=== PATIENT | male | born 1945 | race Caucasian/White ===

== ENCOUNTER 2017-09-22 11:33 | Inpatient (IN) | payer MEDICARE, OTHER ==
[~2017-09-22] VITALS: Ht 180.3 cm; Wt 95.3 kg
[2017-09-22] VITALS (73 sets, daily range): BP systolic 80–115; BP diastolic 45–75
[2017-09-22] MEDS: SODIUM CHLORIDE 0.9% 1000ML 1,000 ML IV SCH ×4 (11:35→20:51)
[2017-09-22] MEDS ORDERED: SODIUM CHLORIDE 0.9% 1000ML 2,000 ML ONE ×2 (11:49→15:07)
[2017-09-22] MEDS ORDERED: SUCCINYLCHOLINE CHLORIDE 20 MG/ML 10ML VIAL IV STA (12:01)
[2017-09-22] MEDS ORDERED: ETOMIDATE 2 MG/ML 10 ML INJ IV STA (12:01)
[2017-09-22 12:13] LABS: BASOPHILS # (AUTO) 0.1 (0.0-0.1); BASOPHILS % 0.5 % (0.0-1.0); EOSINOPHILS # (AUTO) 0.1 (0.0-0.4); EOSINOPHILS % 0.9 % (0.0-6.0); HEMATOCRIT 48.6 % (38.2-49.6); HEMOGLOBIN 16.8 g/dL (14.0-18.0); LYMPHOCYTES # (AUTO) 1.3 (1.0-3.2); MEAN CORPUSCULAR HEMOGLOBIN 30.1 pg (28-32); MEAN CORPUSCULAR HGB CONC 34.6 g/dL (31-35); MEAN CORPUSCULAR VOLUME 86.9 fL (81-99); MONOCYTES # (AUTO) 0.7 (0.2-0.8); MONOCYTES % 6.8 % (4.4-11.3); NEUTROPHILS # (AUTO) 8.7 (2.1-6.9); NEUTROPHILS % 79.3 % (38.7-80.0); PLATELET COUNT 356 x10e3/uL (140-360); RED BLOOD COUNT 5.59 x10e6/uL (4.3-5.7); RED CELL DISTRIBUTION WIDTH 12.5 % (11.7-14.4)
[2017-09-22 12:17] LABS: INR 1.8; PROTHROMBIN TIME 19.6 seconds (11.9-14.5)
[2017-09-22 12:18] LABS: PARTIAL THROMBOPLASTIN TIME 42.4 seconds (23.8-35.5)
[2017-09-22 12:27] LABS: ALBUMIN 3.8 g/dL (3.5-5.0); ALBUMIN/GLOBULIN RATIO 1.1 (0.8-2.0); CALCIUM 10.1 mg/dL (8.4-10.2); CREATININE, SERUM 2.11 mg/dL (0.72-1.25)
[2017-09-22 12:35] LABS: CREATINE KINASE MB 1.8 ng/mL (0-5.0)
[2017-09-22] MEDS ORDERED: GLUCAGON FOR INJ 1 MG VIAL IV ONE (13:00)
[2017-09-22] MEDS ORDERED: VECURONIUM BROMIDE FOR INJ 20 MG VIAL IV ONE (13:01)
--- NOTE | 2017-09-22 13:36 | Diagnostic Imaging Report ---
Examination: Single AP view of the chest. COMPARISON: None INDICATION: Overdose DISCUSSION: Lines/tubes: Right subclavian line with distal tip in the mid right atrium. Consider 5 cm retraction. Endotracheal tube 5 cm from the inferior florentino in position. Lungs: Right lower lobe opacity. Pleura: There is no pleural effusion or pneumothorax. Heart and mediastinum: The heart and the mediastinum are unremarkable. Bones and soft tissues: No acute bony abnormalities. IMPRESSION: Right lower lobe opacity may reflect pneumonia or aspiration. Right subclavian catheter in the mid right atrium. Consider retraction. Signed by: Dr. Say Woods M.D. on 09/22/2017 1:32 PM
--- NOTE | 2017-09-22 13:37 | Diagnostic Imaging Report ---
Exam: Abdominal film Clinical History: Abdominal pain Comparison: None. DISCUSSION: Frontal view of the abdomen shows a nonobstructive bowel gas pattern with mild amount of retained stool. There are no dilated, air-filled loops of bowel. There are no abnormal calcifications. No acute bone abnormality. IMPRESSION: 1. Nonobstructive bowel gas pattern. Signed by: Dr. Say Woods M.D. on 09/22/2017 1:33 PM
[2017-09-22] MEDS ORDERED: PIPER-TAZ 3.375 GM 50 ML IV STA (13:40)
[2017-09-22] MEDS ORDERED: VECURONIUM BROMIDE FOR INJ 20 MG VIAL ONE (13:45)
[2017-09-22] MEDS ORDERED: SUCCINYLCHOLINE CHLORIDE 20 MG/ML 10ML VIAL ONE (13:45)
[2017-09-22] MEDS ORDERED: WATER STERILE 10 ML VIAL ONE (13:45)
[2017-09-22] MEDS ORDERED: ETOMIDATE 2 MG/ML 10 ML INJ IV ONE (13:45)
[2017-09-22] MEDS ORDERED: MIDAZOLAM HCL 2 MG/2 ML VIAL ONE (13:45)
[2017-09-22 14:02] LABS: CLARITY,URINE CLEAR (CLEAR); COLOR,URINE YELLOW (YELLOW); LEUKOCYTE ESTERASE ,URINE NEGATIVE (NEGATIVE)
[2017-09-22 14:03] LABS: BILIRUBIN,URINE 1+ (NEGATIVE); KETONES,URINE NEGATIVE (NEGATIVE); NITRITE,URINE NEGATIVE (NEGATIVE); PROTEIN,URINE DIPSTICK 1+ (NEGATIVE); URINE UROBILINOGEN 0.2 mg/dL (0.2 - 1)
[2017-09-22 14:11] LABS: AMPHETAMINES SCREEN,URINE NEGATIVE (NEGATIVE); PHENCYCLIDINE SCREEN,URINE NEGATIVE (NEGATIVE)
[2017-09-22 14:12] LABS: BENZODIAZEPINES SCREEN,URINE POSITIVE (NEGATIVE)
[2017-09-22] MEDS ORDERED: DEXTROSE 50% SYRINGE 50 ML IV STA (14:12)
[2017-09-22] MEDS ORDERED: INSULIN REGULAR, HUMAN 100 UNIT/1 ML 3ML VIAL IV ONE (14:15)
[2017-09-22 14:18] LABS: BACTERIA,URINE FEW /HPF; EPITHELIAL CELLS,URINE FEW /LPF; MUCUS,URINE MANY (RARE); RBC,URINE 0-5 /HPF (0-5); TRANSITIONAL EPI CELLS,URINE RARE
[2017-09-22] MEDS ORDERED: DEXTROSE 50% SYRINGE 50 ML IV ONE ×2 (14:18→18:50)
[2017-09-22] MEDS ORDERED: INSULIN REGULAR, HUMAN 100 UNIT/1 ML 3ML VIAL ONE (14:19)
[2017-09-22 14:25] LABS: SALICYLATE < 5.0 mg/dL (0-30)
--- NOTE | 2017-09-22 14:54 | Diagnostic Imaging Report ---
History:Overdose AMS Comparison studies:None Technique: Axial images were obtained from the skull base to the vertex. Coronal and sagittal images reconstructed from the axial data. Intravenous contrast: None Findings: Scalp/skull: No abnormalities. Extra-axial spaces: No masses. No fluid collections. Brain sulci: Age appropriate. Ventricles: Age appropriate. No hydrocephalus. Parenchyma: No abnormal densities. No masses, hemorrhage, acute or chronic cortical vascular insults. Sellar/suprasellar region: No abnormalities. Craniocervical junction: Patent foramen magnum. No Chiari one malformation. Incidental findings: Atherosclerotic calcifications in the carotid siphons . Secretions in the left maxillary sinus and nasopharynx. Impression: No acute abnormalities. Signed by: DR Moi Nicholson M.D. on 09/22/2017 2:50 PM
[2017-09-22 14:55] LABS: ABG HCO3 19 mmol/L (23-28); ABG PCO2 54 mmHg (41-51); ABG PH 7.17 (7.31-7.41); ABG PO2 197 mmHg (80-105)
[2017-09-22 14:56] LABS: ABG HCO3 17 mmol/L (23-28); ABG PCO2 42 mmHg (41-51); ABG PH 7.21 (7.31-7.41); ABG PO2 86 mmHg (80-105)
[2017-09-22] MEDS ORDERED: HUM PROTHROMBIN CPLX(PCC)4FACT 2,000 UNIT IV ONE (15:09)
[2017-09-22] MEDS ORDERED: ACETYLCYSTEINE 200 MG/1 ML 10ML VIAL INH STA (15:09)
[2017-09-22] MEDS ORDERED: NOREPINEPHRINE 8 MG/D5W 250 ML 250 ML ONE (15:28)
[2017-09-22] MEDS ORDERED: ACETYLCYSTEINE 20% INHAL SOLN 30 ML VIAL GT SCH ×2 (15:30→19:30)
[2017-09-22] MEDS ORDERED: ACETYLCYSTEINE 200 MG/ML 4ML VIAL ONE (15:30)
[2017-09-22] MEDS ORDERED: ACETYLCYSTEINE 200 MG/ML 4ML VIAL INH ONE (15:45)
[2017-09-22] MEDS ORDERED: NOREPINEPHRINE INJ 4MG/4ML 8 MG in DEXTROSE 5% 250ML 250 ML IV STA (15:45)
[2017-09-22] MEDS ORDERED: ACETYLCYSTEINE 20% INHAL SOLN 30 ML VIAL GT ONE (16:00)
[2017-09-22] MEDS ORDERED: INSULIN REGULAR IV SCH ×2 (16:00)
[2017-09-22] MEDS ORDERED: HUMAN IV SCH ×2 (16:00)
[2017-09-22] MEDS ORDERED: [UNRECOGNIZED DRUG - OTHER] IV SCH ×2 (16:00)
[2017-09-22] MEDS ORDERED: SODIUM CHLORIDE 0.9% IV SCH ×2 (16:00)
--- OUTSIDE RECORDS SUMMARY | 2017-09-22 16:32 | XMS REPORT ---
Author Author [facility] Address Unknown Phone Unavailable Care Team Providers Care Stove Fitter Name Role Phone JACKI OSBORNE Unavailable Unavailable Problems This patient has no known problems. Allergies, Adverse Reactions, Alerts This patient has no known allergies or adverse reactions. Medications This patient has no known medications. Results Test Description Test Time Test Comments Text Results Atomic Results Result Comments ABDOMEN-1VIEW (KUB) [place] [address] Patient Name: SADIA TRUONG MR #: [id number] : 1945 Age/Sex: 72/M Req #: [id number] Adm Physician: Ordered by: JACKI OSBORNE MD Report # : [id number] Location: ER Room/Bed: Procedure: [id number] DX/ABDOMEN-1VIEW (KUB) Exam Date: 09/22/17 Exam Time: 1305 REPORT STATUS: Signed Exam: Abdominal film Clinical History: Abdominal pain Comparison: None. DISCUSSION: Frontal view of the abdomen shows a nonobstructive bowel gas pattern with mild amount of retained stool. There are no dilated, air-filled loops of bowel. There are no abnormal calcifications. No acute bone abnormality. IMPRESSION: 1. Nonobstructive bowel gas pattern. Signed by: Dr. Claire Cosby M.D. on 09/22/2017 1:33 PM Dictated By: CLAIRE COSBY MD 32 Transcribed By: SUZANNE on 09/22/171332 COPY TO: JACKI OSBORNE MD CHEST SINGLE (PORTABLE) [place] [address] Patient Name: SADIA TRUONG MR #: [id number] : 1945 Age/Sex: 72/M Req #: [id number] Adm Physician: Ordered by: JACKI OSBORNE MD Report #: [id number] Location: ER Room/Bed: Procedure: [id number] DX/CHEST SINGLE (PORTABLE) Exam Date: 09/22/17 Exam Time: 1305 REPORT STATUS: Signed Examination: Single AP view of the chest. COMPARISON: None INDICATION: Overdose DISCUSSION: Lines/tubes: Right subclavian line with distal tip in the mid right atrium. Consider 5 cm retraction. Endotracheal tube 5 cm from the inferior florentino in position. Lungs: Right lower lobe opacity. Pleura: There is no pleural effusion or pneumothorax. Heart and mediastinum: The heart and the mediastinum are unremarkable. Bones and soft tissues: No acute bony abnormalities. IMPRESSION: Right lower lobe opacity may reflect pneumonia or aspiration. Right subclavian catheter in the mid right atrium. Consider retraction. Signed by: Dr. Claire Cosby M.D. on 09/22/2017 1:32 PM Dictated By: CLAIRE COSBY MD 31 Transcribed By: SUZANNE on 09/22/171331 COPY TO: JACKI OSBORNE MD CT BRAIN WO [place] [address] Patient Name: SADIA TRUONG MR #: [id number] : 1945 Age/Sex: 72/M Req #: [id number] Adm Physician: Ordered by: JACKI OSBORNE MD Report #: [id number] Location: Room/Bed: Procedure: [id number] CT/CT BRAIN WO Exam Date: 09/22/17 Exam Time: 1431 REPORT STATUS: Signed History:Overdose AMS Comparison studies:None Technique: Axial images were obtained from the skull base to the vertex. Coronal and sagittal images reconstructed from the axial data. Intravenous contrast: None Findings: Scalp/skull: No abnormalities. Extra- axial spaces: No masses. No fluid collections. Brain sulci: Age appropriate. Ventricles: Age appropriate. No hydrocephalus. Parenchyma: No abnormal densities. No masses, hemorrhage, acute or chronic cortical vascular insults. Sellar/suprasellar region: No abnormalities. Craniocervical junction: Patent foramen magnum. No Chiari one malformation. Incidental findings: Atherosclerotic calcifications in the carotid siphons . Secretions in the left maxillary sinus and nasopharynx. Impression: No acute abnormalities. Signed by: DR Moi Nicholson M.D. on 09/22/2017 2:50 PM Dictated By: MOI PAYTON MD [id number] Transcribed By: SUZANNE on 1456 COPY TO: JACKI OSBORNE MD
--- NOTE | 2017-09-22 16:50 | Diagnostic Imaging Report ---
Examination: Single AP view of the chest. COMPARISON: None. INDICATION: Catheter placement DISCUSSION: Lines/tubes: Dialysis catheter tip overlying the superior vena cava. Endotracheal tube in satisfactory position 5 cm from the florentino. An enteric tube with distal tip not visualized. Lungs: Pulmonary venous congestion. No consolidation. Pleura: There is no pleural effusion or pneumothorax. Heart and mediastinum: The heart and the mediastinum are unremarkable. Bones and soft tissues: No acute bony abnormalities. IMPRESSION: 1. Pulmonary venous congestion Signed by: Dr. Say Woods M.D. on 09/22/2017 4:46 PM
[2017-09-22] MEDS ORDERED: ACETYLCYSTEINE 200 MG/1 ML 10ML VIAL GT SCH (17:00)
[2017-09-22] MEDS ORDERED: NOREPINEPHRINE INJ 4MG/4ML 8 MG in DEXTROSE 5% 250ML 250 ML IV SCH (17:30)
[2017-09-22] MEDS ORDERED: INSULIN REGULAR, HUMAN 3ML VL 100 UNIT in SODIUM CHLORIDE 0.9% 100 ML 100 ML IV SCH ×2 (17:45)
[2017-09-22] MEDS ORDERED: PHENYLEPHRINE 10MG/ML VIAL 40 MG in DEXTROSE 5% 250ML 250 ML IV PRN (17:45)
[2017-09-22] MEDS ORDERED: MIDAZOLAM HCL 2 MG/2 ML VIAL IV PRN (17:45)
--- NOTE | 2017-09-22 17:55 | Diagnostic Imaging Report ---
Examination: Single AP view of the chest. COMPARISON: 09/22/2017 INDICATION: Catheter placement DISCUSSION: Lines/tubes: Dialysis catheter tip overlying the superior vena cava. Endotracheal tube in satisfactory position 5 cm from the florentino. An enteric tube with distal tip not visualized. Lungs: Pulmonary venous congestion. No consolidation. Pleura: There is no pleural effusion or pneumothorax. Heart and mediastinum: The heart and the mediastinum are unremarkable. Bones and soft tissues: No acute bony abnormalities. IMPRESSION: 1. Pulmonary venous congestion Signed by: Dr. Say Woods M.D. on 09/22/2017 5:51 PM
[2017-09-22] MEDS ORDERED: ACETYLCYSTEINE 200 MG/1 ML 10ML VIAL PO SCH (18:00)
[2017-09-22] MEDS ORDERED: HYDROCORTISONE SOD SUCCINATE 250 MG VIAL IV SCH (18:00)
[2017-09-22 18:35] LABS: ACETAMINOPHEN > 376623 ug/mL (10-30)
[2017-09-22 18:37] LABS: CREATINE KINASE MB 2.1 ng/mL (0-5.0)
[2017-09-22] MEDS ORDERED: PHYTONADIONE 10 MG/ML AMP SQ ONE (20:00)
--- NOTE | 2017-09-22 20:22 | Consultation ---
DATE OF CONSULTATION: September 22, 2017 PULMONARY CONSULTATION This is a patient of Dr. Rojo. Admitted through the emergency room after an apparent suicide attempt. Currently intubated and on pressors. History of depression on multiple medications. He took whole bottles apparently of Lexapro, metoprolol, irbesartan, lovastatin, TriCor, Norvasc, Pradaxa, Tylenol, Xanax, Ambien and Cymbalta. PHYSICAL EXAMINATION GENERAL: He is currently comatose. VITALS: Temperature is 98.1, pulse 58, respirations 18, blood pressure 78/45. HEENT: Head is normocephalic and atraumatic. Appears somewhat elderly. LUNGS: A few rhonchi anteriorly. HEART: Regular rhythm. ABDOMEN: Nontender. EXTREMITIES: Not edematous. IMPRESSION: Intentional suicide attempt by overdose. PLAN: Support, pressors, dialysis. if available. Pro time is 19.6, INR 1.8. CT of the brain revealed no evidence of acute stroke. He is quite acidotic. Bicarb is 20. Creatinine 2.1. Glucose 369. Monitor carefully. Dialysis at the discretion of the nephrology service loss control consultant. EKG suggests a sinus bradycardia. Thank you for this kind referral. Job#: [id number]
[2017-09-22 20:23] LABS: INR 2.42; PROTHROMBIN TIME 24.7 seconds (11.9-14.5)
[2017-09-22 20:24] LABS: PARTIAL THROMBOPLASTIN TIME 63.2 seconds (23.8-35.5)
[2017-09-22] MEDS: PIPERACILLIN/TAZO 2.25 GM 50 ML IV SCH (20:35)
[2017-09-22] MEDS: HYDROCORTISONE SOD SUCCINATE 100 MG VIAL IV SCH (20:38)
[2017-09-22 20:42] LABS: ANION GAP 15.4 mmol/L (8-16); CALCIUM 7.9 mg/dL (8.4-10.2); POTASSIUM 3.4 mmol/L (3.5-5.1)
[2017-09-22] MEDS: ACETYLCYSTEINE 20% INHAL SOLN 30 ML VIAL GT SCH (20:50)
[2017-09-22 20:51] LABS: CREATININE, SERUM 2.5 mg/dL (0.72-1.25)
[2017-09-22] MEDS ORDERED: PHYTONADIONE 10MG/ML 1 ML ONE (21:42)
[2017-09-22] MEDS ORDERED: MAGNESIUM SULF 1GRAM/DEXTROSE 100 ML IV PRN (22:00)
[2017-09-22] MEDS ORDERED: POTASSIUM CHLORIDE 20MEQ/100ML 200 ML IV PRN (22:00)
[2017-09-22] MEDS ORDERED: SODIUM BICARBONATE 8.4% IV SCH (22:15)
[2017-09-22] MEDS ORDERED: DEXTROSE 5% IV SCH (22:15)
[2017-09-22] MEDS: POTASSIUM CHLORIDE 20MEQ/100ML 100 ML IV PRN (23:00)
[2017-09-23] VITALS (112 sets, daily range): BP systolic 0–139; BP diastolic 0–115
[2017-09-23] MEDS ORDERED: HUM PROTHROMBIN CPLX(PCC)4FACT 2,000 UNIT IV SCH
[2017-09-23] MEDS: ACETYLCYSTEINE 20% INHAL SOLN 30 ML VIAL GT SCH ×4 (00:29→14:01)
[2017-09-23] MEDS: HYDROCORTISONE SOD SUCCINATE 100 MG VIAL IV SCH ×3 (00:29→14:01)
[2017-09-23] MEDS: PIPERACILLIN/TAZO 2.25 GM 50 ML IV SCH ×3 (00:29→14:01)
[2017-09-23 00:35] LABS: INR 2.24; PROTHROMBIN TIME 23.3 seconds (11.9-14.5)
[2017-09-23] MEDS: SODIUM BICARBONATE 8.4% 150 ML in DEXTROSE 5% 1,000 ML IV SCH ×3 (00:38→14:01)
[2017-09-23 00:46] LABS: ANION GAP 20.1 mmol/L (8-16); CREATININE, SERUM 2.76 mg/dL (0.72-1.25); MAGNESIUM 1.6 MG/DL (1.3-2.1); POTASSIUM 3.1 mmol/L (3.5-5.1)
[2017-09-23 01:07] LABS: CREATINE KINASE MB 2.3 ng/mL (0-5.0)
[2017-09-23] MEDS: POTASSIUM CHLORIDE 20MEQ/100ML 100 ML IV PRN (01:08)
--- NOTE | 2017-09-23 01:25 | Consultation ---
DATE OF CONSULTATION: ADDENDUM PULMONARY CONSULTATION He has received glucagon in an attempt to counteract the effects of metoprolol and now insulin to counteract the effect of the Norvasc. He is to receive Mucomyst protocol for the Tylenol overdose. Discussed with family and nurses. Thank you for this kind referral. Job#: [id number] CF
--- NOTE | 2017-09-23 03:00 | Consultation ---
DATE OF CONSULTATION: September 22, 2017 GI CONSULT NOTE REFERRING PHYSICIAN: Donis Rojo MD REASON FOR CONSULT: Tylenol overdose. HISTORY OF PRESENTING ILLNESS: P[age]cf[id number]-old male with host of comorbidities, most notably severe depression. He overdosed himself with so many medications today. He consumed all the medications in different bottles that included Lexapro, metoprolol, irbesartan, lovastatin, Tricor, Norvasc, Pradaxa, Tylenol, Xanax, Ambien, and Cymbalta. I cannot derive any history from him. He is currently intubated, on respiratory support. REVIEW OF SYSTEMS: Unobtainable. PAST MEDICAL HISTORY: Depression, hypertension, hyperlipidemia, insomnia. PAST SURGICAL HISTORY: Not available in chart. FAMILY HISTORY: Noncontributory. SOCIAL HISTORY: No smoking, alcohol, or any illicit drug use. ALLERGIES: NO KNOWN DRUG ALLERGIES. HOME MEDICATIONS: Not available. INPATIENT MEDICATIONS: Reviewed. He is getting intravenous Zosyn and acetylcysteine, magnesium sulfate, hydrocortisone succinate IV 50 mg every 6 hours, potassium chloride. PHYSICAL EXAMINATION: VITAL SIGNS: Temperature 97.2; pulse 55; respiration 16 to 18, on respiratory support; blood pressure ranging from 86/49 to 105/56. GENERAL: Intubated, sedated, on ventilator. HEENT: Anicteric sclerae. Oral mucosa is moist. CVS: S1 and S2. Regular. LUNGS: Bilaterally grossly clear. ABDOMEN: Soft, nondistended, nontender. No palpable mass or hernia. Positive bowel sounds. EXTREMITIES: Warm. No leg edema. LABS: WBC 10.96, hemoglobin 16.8, hematocrit 48.6, MCV 86.9, platelet count 356,000. Sodium 133, potassium 3.4, chloride 105, bicarb 16, BUN 26, creatinine 2.50, glucose 521. Liver enzymes normal. Troponins negative. Urine toxicology showed acetaminophen level 071847 mcg/mL. Urinalysis showed WBC 6 to 10 per high-power field, bilirubin positive, leukocyte esterase negative, nitrite negative. Chest x-ray, pulmonary venous congestion. Abdominal x-ray showed nonobstructive bowel gas pattern. IMPRESSION: Polysubstance overdose, Tylenol level is exceedingly high, however, patient does not have any abnormal liver enzymes. INR is slowly rising. It has gone up to 2.42 from 1.80. Glucose level 521. PLAN: From GI standpoint, patient is not into any liver failure at this point of time. Continue Mucomyst and complete the dose. Monitor PT/INR every 4 hours, check glucose every 2 hours. If INR is rising and glucose level is going down, that will be indication of liver failure. Rest of the supportive care as per ICU team. I thank Dr. Rojo for allowing me to participate in the care of this patient. Job#: [id number]
[2017-09-23 03:25] LABS: BASOPHILS % 0.2 % (0.0-1.0); HEMATOCRIT 46.7 % (38.2-49.6); HEMOGLOBIN 15.5 g/dL (14.0-18.0); LYMPHOCYTES % 5.1 % (18.0-39.1); MEAN CORPUSCULAR HEMOGLOBIN 30.1 pg (28-32); MEAN CORPUSCULAR HGB CONC 33.2 g/dL (31-35); MEAN CORPUSCULAR VOLUME 90.7 fL (81-99); MONOCYTES # (AUTO) 0.9 (0.2-0.8); MONOCYTES % 4.5 % (4.4-11.3); NEUTROPHILS % 89.7 % (38.7-80.0); PLATELET COUNT 288 x10e3/uL (140-360); RED BLOOD COUNT 5.15 x10e6/uL (4.3-5.7); RED CELL DISTRIBUTION WIDTH 12.1 % (11.7-14.4)
[2017-09-23 03:33] LABS: INR 2.47; PROTHROMBIN TIME 25.1 seconds (11.9-14.5)
[2017-09-23 03:43] LABS: ANION GAP 20.5 mmol/L (8-16); CREATININE, SERUM 3.03 mg/dL (0.72-1.25); MAGNESIUM 1.5 MG/DL (1.3-2.1); POTASSIUM 3.5 mmol/L (3.5-5.1)
[2017-09-23] MEDS ORDERED: SODIUM CHLORIDE 0.9% 1000ML 1,000 ML ONE (06:45)
--- NOTE | 2017-09-23 07:02 | Diagnostic Imaging Report ---
Examination: Single AP view of the chest. COMPARISON: 09/22/2017 and at 1727 hours INDICATION: Pneumonia DISCUSSION: Lines/tubes: Endotracheal, NG tube and right subclavian central line catheter are stable. Lungs: Worsening lung volumes with bibasilar atelectasis and central vascular congestion.. Pleura: Small bilateral pleural effusions. Heart and mediastinum: The heart and the mediastinum are unremarkable. Bones and soft tissues: No acute bony abnormalities. Degenerative changes in the thoracic spine. IMPRESSION: 1. Persistent central vascular congestion with developing of mild interstitial edema. Tubes and lines are stable. Signed by: Dr. Benji Campbell M.D. on 09/23/2017 6:58 AM
[2017-09-23 08:32] LABS: INR 3.23
[2017-09-23 08:37] LABS: PARTIAL THROMBOPLASTIN TIME 101.4 seconds (23.8-35.5)
[2017-09-23 08:44] LABS: ANION GAP 18.1 mmol/L (8-16); CALCIUM 7.3 mg/dL (8.4-10.2); CREATININE, SERUM 3.17 mg/dL (0.72-1.25); POTASSIUM 4.1 mmol/L (3.5-5.1)
[2017-09-23] MEDS ORDERED: EPINEPHRINE HCL 1:1000 4 MG in DEXTROSE 5% 250ML 250 ML IV PRN (09:45)
[2017-09-23] MEDS ORDERED: HUM PROTHROMBIN CPLX IV SCH (15:09)
[2017-09-23] MEDS ORDERED: [UNRECOGNIZED DRUG - OTHER] IV SCH (15:09)
--- NOTE | 2017-09-23 17:53 | Consultation ---
DATE OF CONSULTATION: September 23, 2017 NEUROLOGY CONSULTATION HISTORY OF PRESENT ILLNESS: Mr. Alex is a 72-year-old man with a past medical history significant for hypertension, hyperlipidemia, atrial fibrillation on Pradaxa, and very recently diagnosed depression admitted to [facility] on September 22, 2017, following an intentional drug overdose. Mr. Alex was found in the late morning/early afternoon of September 22, 2017, by his after intentionally ingesting whole bottles of Lexapro, metoprolol, irbesartan, lovastatin, TriCor, Norvasc, Pradaxa, Tylenol, Xanax, Ambien, and Cymbalta. When Mrs. Alex found the patient, he was unresponsive. She alerted emergency medical services, and Mr. Alex was transported to the emergency center at [facility] for further evaluation and treatment. Mr. Alex was reportedly comatose upon arrival to the emergency center. He had been intubated by paramedics and was placed on a ventilator. Continuous infusions of 3 pressors were initiated to maintain the patient's blood pressure and heart rate. A CT of the brain without contrast was performed and did not show evidence of recent large territorial ischemia, hemorrhage, mass or mass effect. Mr. Alex was admitted to the intensive care unit for further evaluation and treatment. Overnight the patient did experience a cardiopulmonary arrest. Advanced cardiac life support protocol was initiated, and spontaneous circulation was returned. At that time, the emergency center physician recommended the patient undergo an electroencephalogram to evaluate for electrocortical activity. The neurology service was consulted to evaluate for anoxic ischemic brain injury and to interpret the electroencephalogram. At the time of evaluation, the patient is intubated and mechanically ventilated. He is on three pressors to support heart rate and blood pressure. Despite this support, heart rate and blood pressure are progressively trending downward. The patient is anuric. Per the ICU nurse, the patient has not produced any urine in the past several hours. REVIEW OF SYSTEMS: Unable to obtain as the patient is comatose. PAST MEDICAL HISTORY: Hypertension, hyperlipidemia, atrial fibrillation on Pradaxa, recently diagnosed with depression with suicidal ideations, bladder cancer diagnosed in 2014, currently in remission, and hepatitis. PAST SURGICAL HISTORY: Bladder tumor resection in 2015, bilateral carotid endarterectomies. PAST HOSPITALIZATIONS: For surgeries and procedures listed. FAMILY HISTORY: There is a strong family history of hypertension, coronary artery disease, and alcohol abuse. The patient had a maternal aunt who was treated for depression. The patient's brother is undergoing treatment for depression. SOCIAL HISTORY: Mr. Alex is . He has an associates degree. The patient is a retired client administrator. There is a remote history of tobacco use (in his 20s). There is a history of alcohol use. The patient's family members do not endorse a prior history of heavy alcohol use. Mr. Alex stopped drinking alcohol in 1988. There is no known current or prior history of recreational drug use. HOME MEDICATIONS: As per history of present illness. ALLERGIES: NO KNOWN DRUG ALLERGIES. NO KNOWN FOOD ALLERGIES. NO KNOWN ALLERGY TO LATEX. NO KNOWN ALLERGIES TO IODINE OR OTHER CONTRAST MATERIALS. PHYSICAL EXAMINATION VITAL SIGNS: Height 71 inches. Weight 210 pounds. BMI 29.3 kg per meter squared. Blood pressure 89/54 mmHg, pulse 54 beats per minute. Respiratory rate 16 breaths per minute. The patient is mechanically ventilated. GENERAL: Comatose. HEENT: Normocephalic, atraumatic. Pupils are equal, round, not reactive to light. Moist mucous membranes. NECK: Supple. No appreciable thyromegaly. No appreciable carotid bruits. CARDIOVASCULAR: S1, S2 bradycardic. No murmurs, rubs or gallops. RESPIRATORY: Intubated. Clear to auscultation bilaterally. No wheezes, rhonchi or rales. EXTREMITIES: The skin is warm and dry. No clubbing, cyanosis or edema. The posterior tibial and dorsalis pedis pulses are 1+ and symmetric. SKIN: No rashes or lesions. NEUROLOGIC MEMORY/ATTENTION: Comatose. No response to verbal or noxious stimulation. CRANIAL NERVES: Pupils are 6 mm and nonreactive. Weak bilateral corneal reflexes are present. Oculocephalic and gag reflexes are intact. The face appears symmetric. STRENGTH: No response to peripheral noxious stimulation (nail bed pressure). DTRs: Deep tendon reflexes are absent and symmetric at the triceps, biceps, brachioradialis, patellas, and Achilles. Plantar responses are mute bilaterally. Absent clonus. SENSATION: As per motor exam. CEREBELLAR: Unable to assess secondary to the patient being comatose. GAIT: Unable to assess secondary to the patient being comatose and intubated. SPEECH: Unable to assess secondary to the patient being comatose and intubated. INVOLUNTARY MOVEMENTS: None. PRONATOR DRIFT: As per motor exam. LABORATORY DATA: Sodium 128, potassium 4.1, chloride 101, carbon dioxide 13, anion gap 18.1, BUN 26, creatinine 3.17, estimated GFR 19. OYG-nh-rwtehxmfsf ratio 8. Glucose 626. Calcium 7.3. Magnesium 1.5. Creatine kinase 46 seconds. CK-MB 2.30. Troponin I 0.072. CBC with differential and platelets revealed a white blood cell count of 18.97 with 89.7% neutrophils, 5.1% lymphocytes, 4.5% monocytes, 0.0% eosinophils and 0.2% basophils. PT 31.0, INR 3.23, PTT 101.4. Arterial blood gas reveals pH 7.21, pCO2 of 42, pO2 of 86, bicarbonate of 17, oxygen saturation of 94.0, and a base excess of -11.0. Urinalysis shows 1+ protein and 1+ bilirubin. Otherwise, the urinalysis was unremarkable. Serum toxicology reveals salicylate level less than 5.0, acetaminophen level of greater than 376,623, ethyl alcohol level of less than 10.0 and positive for benzodiazepines. DIAGNOSTIC STUDIES 1. CT of the brain without contrast on 09/22/2017: No acute abnormalities. 2. Chest x-ray on 09/22/2017: Right lower lobe opacity may reflect pneumonia or aspiration. Right subclavian catheter in the mid right atrium. Consider retraction. 3. Abdomen x-ray on 09/22/2017: Nonobstructive bowel gas pattern. 4. Chest x-ray on 09/22/2017: Pulmonary venous congestion. 5. Chest x-ray 09/22/2017: Pulmonary venous congestion. 6. Chest x-ray 09/23/2017: Persistent central vascular congestion with developing mild interstitial edema. Tubes and lines are stable. ASSESSMENT AND PLAN: Mr. Alex is a 72-year-old man admitted to [facility] following an intentional drug overdose. His neurological examination is significant for weak bilateral corneal reflexes, intact oculocephalic and gag reflexes. The presence of these reflexes indicates the patient's brainstem is probably intact. However, the patient is comatose. There is no response to verbal or central or peripheral noxious stimulation. These findings indicate impairment of cortical function. During this evaluation, an electroencephalogram was performed to evaluate for electrocortical activity. Initially, the patient had a background rhythm of 2 to 3 Hz compatible with severe diffuse encephalopathy. There was superimposed fast activity (approximately 14 Hz), probably secondary to benzodiazepine effect. While the electroencephalogram was being performed, the patient experienced abrupt cessation of cardiopulmonary activity. Advanced cardiac life support protocol was initiated, and spontaneous circulation returned within a few minutes. However, following the cardiopulmonary arrest, the EEG demonstrated no electrocortical activity. 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 The findings of the patient's neurological examination as well as the EEG findings before and after cardiopulmonary arrest were discussed in detail with the patient's family. Mr. Alex's family was advised his prognosis is very poor. Even if the patient's other organs recover, it is highly unlikely the patient will regain consciousness. In other words, the patient will very likely remain in a persistent vegetative state. After relating the above information to the patient's family, the family asked to be left alone to make a decision regarding the future care of Mr. Alxe. There are no further recommendations from the neurology service at this time. Thank you for this consultation. I will continue to follow this patient while he remains in hospital. Time spent: 210 minutes. Job#: [id number] CHICHI ARIZMENDI
--- NOTE | 2017-09-24 09:58 | Consultation ---
DATE OF CONSULTATION: NEPHROLOGY CONSULTATION REASON FOR CONSULTATION: Acute kidney injury, lactic acidosis, polydrug overdose. HPI: This is a 72-year-old male, morbidly obese, with recent diagnosis of depression, treated currently with antidepressive medications by the PCP. Also is on Pradaxa, which he comes in via EMS to the ER, intubated, and which he overdosed on Pradaxa and antidepressive medications. Patient apparently took overdose on his metoprolol, Norvasc, Cymbalta, Ambien, Xanax, as well as Tylenol. Patient is currently intubated, sedated on 3 pressors which are currently maxed out. Patient is currently unstable for any dialysis. Nephrology is consulted for HD management. REVIEW OF SYSTEMS: Patient drug overdosed on several medications, history of depression, unable to obtain rest of the 14-point review of systems as the patient is intubated and sedated. ALLERGIES: NO KNOWN DRUG ALLERGIES. HOME MEDICATIONS: Currently, the dosings are not available, but he does take Pradaxa, Lovastatin, TriCor, irbesartan, metoprolol, Lexapro, Pradaxa, Tylenol, Xanax, Ambien, and Cymbalta. PAST MEDICAL HISTORY: AFib, hypertension, depression, on anticoagulation--unsure if it is for AFib or DVT. SURGICAL HISTORY: Unknown. FAMILY HISTORY: Unknown. SOCIAL HISTORY: He is , has children. Recently, he has been having some depression. PHYSICAL EXAMINATION VITALS: Temperature is afebrile, his current blood pressure is 105/51. He is on 3 pressors, maxed out, on mechanical ventilator. GENERAL: Currently intubated and sedated. HEENT: Pupils equal, round, and reactive to light. Currently intubated and sedated. PULMONARY: Intubated and sedated on a vent. No crackles, no rales, no rhonchi. CARDIOVASCULAR: Positive S1 and S2. No murmurs, rubs, or gallops appreciated. ABDOMEN: Soft, nondistended, and nontender to palpation. Bowel sounds are present. MUSCULOSKELETAL: Unable to assess, patient is currently intubated and sedated. NEUROLOGICAL: Unable to assess, currently intubated and sedated. SKIN: Intact. Warm to touch. Good capillary refill. PSYCHIATRIC: Currently intubated and sedated. LAB FINDINGS: White count 10.9, hemoglobin 16.8, hematocrit 49, platelets of 356,000. Coagulations: PT 24.7, INR of 2.4, PTT 63. Chemistry: Sodium 133, potassium 3.4, chloride 105, bicarbonate is 16, anion gap of 15, BUN is 26, creatinine 2.5, glucose 521, calcium 7.9. LFTs, total bilirubin 0.8, AST 22, ALT 18, alkaline phosphatase 54. CK 66. Troponin is 0.024. His total protein 7.3, albumin 3.8. Urinalysis: WBC 6 to 10, RBC 0 to 5, specific gravity 1.030. Toxicology: Benzodiazepines positive. Acetaminophen level 376, 623. Alcohol level negative. Salicylate level negative. IMAGING STUDIES: CT brain: No acute findings. Chest x-ray: Right lower lobe opacity, may reflect pneumonia or aspiration. Chest x-ray shows pulmonary congestion. Abdominal x-ray: Nonobstructive bowel gas pattern. IMPRESSIONS 1. Drug overdose with Pradaxa and Tylenol. 2. Tylenol overdose. 3. Acute kidney injury, likely due to underlying acute tubular necrosis. 4. Hypotension. 5. Lactic acidosis. 6. Metabolic acidosis. 7. Hyperglycemia. PLAN: At this time, I already spoke to the family at bedside including the with nurse present. Due to the fact that the patient is on 3 pressors maxed out, currently on dopamine, Levophed, and Garrett-Synephrine, he is very unstable for any renal replacement therapy at this time. We will put him on bicarbonate drip D5 with 3 amps of bicarbonate to counteract lactic acidosis. He is currently on insulin drip as well which we will continue. We will repeat labs in the morning as well. Due to the fact that he is severely unstable at this time, it will be very difficult for me to do any kind of renal replacement therapy. In the event that he is on less pressors and blood pressure is much more higher and the patient is more stable, then TOBACCO ROLLER will be entertained. I discussed this with the family at bedside and they verbalized understanding. Also discussed this with the nursing staff and they verbalized understanding as well. His prognosis is significantly poor due to the fact that he has significant acetaminophen level and high doses of IV pressors. I also discussed with the nurse in the event that his blood pressure is much more stable and off of pressors, we will definitely do a renal replacement therapy to assist in this patient's care. Patient's family verbalized understanding and agrees with plan of care. Thank you so much for this consultation. Job#: [id number]
--- NOTE | 2017-11-02 23:12 | Discharge Summary ---
SUMMARY Patient on September 23, 2017. CONSULTANTS: Dr. Mariella Rivera, Dr. Cecil Schilling, Dr. Temo Gomes FINAL DIAGNOSES: 1. Expiration. 2. Suicide with multidrug overdose. 3. Major depression. SUMMARY: Patient was a 72-year-old male, who was brought in unresponsive to the emergency room. Apparently, the patient was found taking extensive multiple bottles of prescription medication. Patient was unresponsive and was brought in the emergency room and subsequently intubated. Due to airway compromise, the patient was hypoxic. His blood pressures dropped. He was on multiple pressors support. Blood sugar was in the 500 to 600 due to severe liver failure. Poison control was called. Patient has extensive amount of toxic drugs, Tylenol level. He was in renal failure as well. He did not tolerate dialysis. Patient was in poor condition. His PTT and INR were elevated. Vascular congestion with heart failure. Patient condition was worsened. Discussed with the patient and family at length. He remained in grave condition and subsequently on comfort care. The patient was on ventilator support, max pressor support when he basically coded, but the patient was placed on DNR, and subsequently . Please review the consultation note as well as ICU note. Job#: [id number]
== END 2017-09-23 15:09 | disposition expired | DRG 917 ==
LOC: ER 11:33 → ERHOLD 16:29 → ICU 16:31
PROVIDERS: ADMIT Internal Medicine; ATTEND Internal Medicine
PROC: 0BH17EZ Insertion of Endotracheal Airway into Trachea, Via Natural or Artificial Opening (ICD-10-PCS; principal; 2017-09-22)
PROC: 5A1945Z Respiratory Ventilation, 24-96 Consecutive Hours (ICD-10-PCS; 2017-09-22)
PROC: 02HV33Z Insertion of Infusion Device into Superior Vena Cava, Percutaneous Approach (ICD-10-PCS; 2017-09-22)
PROC: 02HV33Z Insertion of Infusion Device into Superior Vena Cava, Percutaneous Approach (ICD-10-PCS; 2017-09-22)
DX: T45.512A Poisoning by anticoagulants, intentional self-harm, initial encounter (principal); G92 Toxic encephalopathy; J96.01 Acute respiratory failure with hypoxia; N17.9 Acute kidney failure, unspecified; E87.2 Acidosis; G93.1 Anoxic brain damage, not elsewhere classified; E87.1 Hypo-osmolality and hyponatremia; R57.8 Other shock; I46.9 Cardiac arrest, cause unspecified; R73.9 Hyperglycemia, unspecified; I48.91 Unspecified atrial fibrillation; Z79.01 Long term (current) use of anticoagulants; F32.9 Major depressive disorder, single episode, unspecified; T39.1X2A Poisoning by 4-Aminophenol derivatives, intentional self-harm, initial encounter; N14.1 Nephropathy induced by other drugs, medicaments and biological substances; I10 Essential (primary) hypertension
CPT/HCPCS: 31500; 31720; 36415; 36600; 51700; 70450; 71045; 74018; 80048; 80053; 80307; 80320; 80329; 81001; 82550; 82553; 82805; 83735; 83880; 84484; 85025; 85610; 85730; 92950; 93005; 94002; 94003; 94760; 95819; 99285; J0171; J0330; J1610; J1720; J2250; J2370; J2543; J3430; J3475; J3480; J7030; J7070; J7799